=== PATIENT | female | born 1965 | race Caucasian/White ===

== ENCOUNTER 2018-04-19 10:35 | Outpatient (CLI) | payer BC | END 2018-04-19 10:36 | disposition home or self-care (01) | LOC: BICMAMMO 10:35 | PROVIDERS: ATTEND Family Medicine | DX: Z12.31 Encounter for screening mammogram for malignant neoplasm of breast (principal); R92.1 Mammographic calcification found on diagnostic imaging of breast; Z80.3 Family history of malignant neoplasm of breast | CPT/HCPCS: 77063; 77067 ==

== ENCOUNTER 2020-11-03 09:05 | Emergency (ER) | payer BC, SELFPAY ==
--- NOTE | 2020-11-03 09:54 | RAD ---
Exam:3 views right wrist HISTORY: Trauma. Pain. COMPARISON: None FINDINGS: Intercarpal and radiocarpal joint spaces are preserved Displaced ulnar styloid fracture. Comminuted, impacted distal radius fracture with intra-articular ex tension. Mild dorsal angulation. IMPRESSION: Fracture as above.
[2020-11-03] MEDS ORDERED: Bupivacaine 0.5% 10 ML VIAL ONE ×2 (10:10→10:22)
--- NOTE | 2020-11-03 11:22 | RAD ---
EXAM: 3 views of the right wrist HISTORY: Distal radius fracture COMPARISON: 11/03/2020 FINDINGS: 3 views of the right wrist shows reduction of the previously seen distal radius fracture. A n associated ulnar styloid process fracture is seen. An overlying splint obscures fine bony and soft tissue detail. Moderate soft tissue swelling is seen. No degenerative changes are present. IMPRESSION: Distal radius and associated ulnar styloid process fractures.
== END 2020-11-03 11:38 | disposition home or self-care (01) ==
LOC: ERS 09:05
DX: S52.611A Displaced fracture of right ulna styloid process, initial encounter for closed fracture (principal); S52.501A Unspecified fracture of the lower end of right radius, initial encounter for closed fracture; I10 Essential (primary) hypertension; Z79.899 Other long term (current) drug therapy; W00.0XXA Fall on same level due to ice and snow, initial encounter
CPT/HCPCS: 25605; J3490